=== PATIENT | male | born 2000 | race American Indian/Alaskan Native ===

== ENCOUNTER 2019-01-08 19:45 | Emergency (ER) | payer SELFPAY ==
--- NOTE | 2019-01-08 23:26 | Emergency Department Report ---
ED General Adult HPI - General Chief complaint: Head Injury Stated complaint: HEAD LACERATION Time Seen by Provider: 01/08/19 23:07 Source: family Mode of arrival: Ambulatory Limitations: No Limitations - History of Present Illness Initial comments: 18 BM states that he slipped and hit his head on the bed-rail and experienced nausea. He further states that he did not lose consciousness or have vision changes. -: Sudden Location: head Radiation: non-radiation Severity scale (0 -10): 0 Quality: aching Consistency: constant Improves with: none Worsens with: none Associated Symptoms: nausea/vomiting - Related Data Previous Rx's Medication Instructions Recorded Last Taken Type Ibuprofen [Motrin] 800 mg PO Q8HR PRN #20 tablet 11/20/14 Unknown Rx Allergies Allergy/AdvReac Type Severity Reaction Status Date / Time No Known Allergies Allergy Verified 11/20/14 00:02 ED Review of Systems ROS: Stated complaint: HEAD LACERATION Other details as noted in HPI Comment: All other systems reviewed and negative Skin: as per HPI ED Past Medical Hx - Past Medical History Previous Medical History?: No - Surgical History Past Surgical History?: No - Social History Smoking Status: Former Smoker Substance Use Type: None - Medications Home Medications: Home Medications Medication Instructions Recorded Confirmed Last Taken Type Ibuprofen [Motrin] 800 mg PO Q8HR PRN #20 tablet 11/20/14 Unknown Rx ED Physical Exam - General Limitations: No Limitations General appearance: alert, in no apparent distress - Head Head exam: Present: other - Expanded Head Exam Expanded Head exam: Present: laceration (present on the frontal portion of the scalp) - Eye Eye exam: Present: normal appearance, PERRL, EOMI - ENT ENT exam: Present: normal exam, normal external ear exam - Neck Neck exam: Present: normal inspection, full ROM. Absent: tenderness - Respiratory Respiratory exam: Present: normal lung sounds bilaterally. Absent: respiratory distress, chest wall tenderness - Cardiovascular Cardiovascular Exam: Present: regular rate, normal rhythm, normal heart sounds - GI/Abdominal GI/Abdominal exam: Present: soft. Absent: distended, tenderness - Rectal Rectal exam: Present: deferred - Extremities Exam Extremities exam: Present: normal inspection, full ROM. Absent: tenderness - Back Exam Back exam: Present: normal inspection, full ROM. Absent: tenderness - Neurological Exam Neurological exam: Present: alert, altered, oriented X3, normal gait - Psychiatric Psychiatric exam: Present: normal affect, normal mood. Absent: depressed - Skin Skin exam: Present: other (laceration present on the frontal scalp) ED Course Vital Signs 01/08/19 20:26 Temperature 98.3 F Pulse Rate 105 H Respiratory 18 Rate Blood Pressure 121/72 Blood Pressure 121/72 [Left] O2 Sat by Pulse 98 Oximetry - Procedure Description Procedures done: Pt's wound was approximated and 7 jarrett were placed at the frontal portion of his skull. Wound appeared closed and bleeding ceased. Pt tolerated procedure well. Sensory and neuro exam intact. ED Medical Decision Making - Medical Decision Making 20 BM states that he slipped and hit his head on the bed-rail and experienced nausea. He further states that he did not lose consciousness or have vision changes. Pt's wound was approximated and jarrett were applied. Pt was instructed to keep wound clean, use normal saline or baby shampoo to clean around the wound, apply Neosporin for topical coverage and f/u with PCP in 2-3 days for wound check. Pt was further instructed to return to ER as needed. He verbalized understanding and agreed with the plan of care. Critical care attestation.: If time is entered above; I have spent that time in minutes in the direct care of this critically ill patient, excluding procedure time. ED Disposition Clinical Impression: Laceration Disposition: DC-01 TO HOME OR SELFCARE Is pt being admited?: No Does the pt Need Aspirin: No Condition: Stable Instructions: Staple Care (ED), Laceration (ED) Additional Instructions: Pt was instructed to keep wound clean, use normal saline or baby shampoo to clean around the wound, apply Neosporin for topical coverage and f/u with PCP in 2-3 days for wound check. Pt was further instructed to return to ER as needed. He verbalized understanding and agreed with the plan of care. Referrals: PRIMARY MD LUCERO [Primary Care Provider] - 3-5 Days [facility] [Provider Group] - 3-5 Days
[2019-01-08] MEDS ORDERED: ACETAMINOPHEN 325 MG TAB PO ONE (23:38)
[2019-01-08] MEDS ORDERED: ACETAMINOPHEN 325 MG TAB ONE (23:40)
[2019-01-09 01:38] VITALS: BP 112/70
== END 2019-01-09 00:10 | disposition home or self-care (01) ==
LOC: ED 19:45
DX: S01.01XA Laceration without foreign body of scalp, initial encounter (principal); R11.2 Nausea with vomiting, unspecified; Z87.891 Personal history of nicotine dependence; Z79.899 Other long term (current) drug therapy; W01.198A Fall on same level from slipping, tripping and stumbling with subsequent striking against other object, initial encounter; Y93.89 Activity, other specified; Y92.89 Other specified places as the place of occurrence of the external cause; Y99.8 Other external cause status